=== PATIENT | female | born 1940 | race Caucasian/White ===

== ENCOUNTER 2020-10-11 20:15 | Inpatient (IN) | payer MEDICARE, OTHER ==
[2020-10-11 22:18] LABS: INR 1.13 (0.83-1.09); PROTHROMBIN TIME (PATIENT) 13.8 SEC (9.7-13.0)
[2020-10-11] MEDS ORDERED: LIDOCAINE 5% TOPICAL PATCH TP ONE (22:22)
[2020-10-11] MEDS ORDERED: ACETAMINOPHEN 1000 MG/100 ML VIAL (NON FORMULARY) IVPB ONE (22:22)
[2020-10-11] MEDS ORDERED: ACETAMINOPHEN INJECTION 100 ML IVPB ONE (22:27)
[2020-10-11] MEDS ORDERED: LIDOCAINE 5% TOPICAL PATCH ONE (22:28)
[2020-10-11 22:29] LABS: BASO % 0.4 % (0-2.0); EOS % 1.3 % (0-4.5); HEMATOCRIT 34.9 % (32.4-45.2); HEMOGLOBIN 11.8 GM/dL (10.7-15.3); LYMPH % 17.4 % (8-40); MCH 30.6 pg (25.7-33.7); MCHC 33.7 g/dl (32.0-36.0); MEAN CELL VOLUME 90.7 fl (80-96); MEAN PLT VOLUME 8.7 fl (7.5-11.1); MONO % 12.5 % (3.8-10.2); NEUT % 68.4 % (42.8-82.8); PLATELET COUNT 249 K/MM3 (134-434); RBC 3.84 M/mm3 (3.60-5.2); RDW 14.1 % (11.6-15.6); WHITE BLOOD COUNT 6.2 K/mm3 (4.0-10.0)
[2020-10-11 22:34] LABS: CHLORIDE 107 mmol/L (98-107); SODIUM 141 mmol/L (136-145)
[2020-10-11 22:37] LABS: ALBUMIN 3.2 g/dl (3.4-5.0); CALCIUM 8.3 mg/dL (8.5-10.1); CO2 33 mmol/L (21-32); GLUCOSE,RANDOM 104 mg/dL (74-106); MAGNESIUM 2.1 mg/dL (1.8-2.4)
[2020-10-11 22:40] LABS: CREATININE 0.7 mg/dL (0.55-1.3); SGOT/AST 59 U/L (15-37); SGPT/ALT 26 U/L (13-61)
[2020-10-11 22:42] LABS: BILIRUBIN,TOTAL 0.4 mg/dL (0.2-1); TOT PROT 7.2 g/dl (6.4-8.2)
[2020-10-11 22:43] LABS: ALK PHOS 103 U/L (45-117)
[2020-10-11 22:46] LABS: N-TERMINAL BNP 73.6 pg/ml (5-450)
[2020-10-11 23:20] LABS: ANION GAP 2 MMOL/L (8-16)
[2020-10-12 01:50] LABS: VENOUS BASE EXCESS 1.9 mmol/L (-2-2); VENOUS O2 SATURATION 61.8 % (70-80); VENOUS PCO2 44.5 mmHg (38-52); VENOUS PH 7.402 (7.310-7.410)
[2020-10-12 04:41] LABS: URINE APPEARANCE CLEAR; URINE BILIRUBIN NEGATIVE (NEGATIVE); URINE COLOR YELLOW; URINE GLUCOSE (UA) NEGATIVE (NEGATIVE); URINE KETONE NEGATIVE (NEGATIVE); URINE LEUK ESTERASE NEGATIVE (NEGATIVE); URINE NITRITE NEGATIVE (NEGATIVE); URINE PROTEIN NEGATIVE (NEGATIVE)
[2020-10-12] MEDS ORDERED: ACETAMINOPHEN 325 MG TABLET (FP) PO PRN (04:44)
[2020-10-12 07:48] VITALS: BMI 27.9
[2020-10-12 08:50] LABS: BASO % 0.3 % (0-2.0); EOS % 1.8 % (0-4.5); HEMATOCRIT 35.3 % (32.4-45.2); HEMOGLOBIN 12.3 GM/dL (10.7-15.3); LYMPH % 21.6 % (8-40); MCH 31.4 pg (25.7-33.7); MCHC 34.7 g/dl (32.0-36.0); MEAN CELL VOLUME 90.4 fl (80-96); MEAN PLT VOLUME 8.6 fl (7.5-11.1); MONO % 11.6 % (3.8-10.2); NEUT % 64.7 % (42.8-82.8); PLATELET COUNT 249 K/MM3 (134-434); RBC 3.91 M/mm3 (3.60-5.2); RDW 13.7 % (11.6-15.6); WHITE BLOOD COUNT 4.9 K/mm3 (4.0-10.0)
[2020-10-12 09:05] LABS: ALBUMIN 3.3 g/dl (3.4-5.0); BLOOD UREA NITROGEN 9.1 mg/dL (7-18); CALCIUM 8.3 mg/dL (8.5-10.1)
[2020-10-12 09:09] LABS: CREATININE 0.5 mg/dL (0.55-1.3)
[2020-10-12 09:10] LABS: BILIRUBIN,TOTAL 0.7 mg/dL (0.2-1); TOT PROT 6.7 g/dl (6.4-8.2)
[2020-10-12] MEDS ORDERED: LIDOCAINE PATCH REMOVAL MC SCH (10:00)
[2020-10-12] MEDS: CHOLECALCIFEROL (VIT D3) 1,000 UNIT (25 MCG) TABLET PO SCH (10:23)
[2020-10-12] MEDS: ZINC SULFATE 220 MG CAPSULE (FP) PO SCH (10:23)
[2020-10-12] MEDS: ENOXAPARIN NA (PORCINE) 40 MG/0.4 ML DISP.SYRIN SQ SCH (10:23)
[2020-10-12] MEDS: ASCORBIC ACID 500 MG TABLET (FP) PO SCH ×2 (10:23→22:17)
[2020-10-13] MEDS: ENOXAPARIN NA (PORCINE) 40 MG/0.4 ML DISP.SYRIN SQ SCH (12:19)
[2020-10-13] MEDS: ASCORBIC ACID 500 MG TABLET (FP) PO SCH ×2 (12:19→21:20)
[2020-10-13] MEDS: ZINC SULFATE 220 MG CAPSULE (FP) PO SCH (12:19)
[2020-10-13] MEDS: CHOLECALCIFEROL (VIT D3) 1,000 UNIT (25 MCG) TABLET PO SCH (12:19)
[2020-10-14] MEDS: ENOXAPARIN NA (PORCINE) 40 MG/0.4 ML DISP.SYRIN SQ SCH (09:53)
[2020-10-14] MEDS: ASCORBIC ACID 500 MG TABLET (FP) PO SCH (09:53)
[2020-10-14] MEDS: CHOLECALCIFEROL (VIT D3) 1,000 UNIT (25 MCG) TABLET PO SCH (09:53)
[2020-10-14] MEDS: ZINC SULFATE 220 MG CAPSULE (FP) PO SCH (09:53)
[2020-10-14 16:25] VITALS: BP 135/61; PULSE 75; TEMP 97.9
== END 2020-10-14 18:45 | disposition home or self-care (01) | DRG 179 ==
LOC: JER 20:15 → JERBED 10-12 03:27 → J8W 10-12 04:44
PROVIDERS: ADMIT Internal Medicine; ATTEND Internal Medicine
DX: U07.1 COVID-19 (principal); I10 Essential (primary) hypertension; R26.2 Difficulty in walking, not elsewhere classified; R53.1 Weakness; R60.0 Localized edema
CPT/HCPCS: 36415; 70450-TC; 71045-TC-FY; 72131-TC; 73502-TC-LT-FY; 73502-TC-RT-FY; 73564-TC-LT-FY; 73564-TC-RT-FY; 80053; 81003; 82550; 82553; 82728; 82803; 83615; 83735; 83880; 84132; 84484; 85025; 85610; 85730; 86140; 87086; 93005; 93010; 93970-TC; 97116-GP; 97161-GP; 99285-25; C9803; J0131; U0003; U0005

== ENCOUNTER 2024-12-26 13:09 | Inpatient (IN) | payer OTHER ==
[2024-12-26] MEDS ORDERED: ACETAMINOPHEN INJECTION 100 ML ONE (14:23)
[2024-12-26] MEDS ORDERED: VANCOMYCIN 1,000 MG in DEXTROSE 5%-WATER - 250 ML IVPB ONE (14:31)
[2024-12-26] MEDS: ACETAMINOPHEN 1000 MG/100 ML BAG IVPB ONE (14:51)
[2024-12-26] MEDS: LACTATED RINGERS SOLUTION 1000 ML INFUS.BAG IV ONE (14:51)
[2024-12-26] MEDS ORDERED: PIPERACILLIN/TAZOB 4.5 GM 4.5 GM/100 ML BAG IVPB ONE (14:59)
[2024-12-26 15:06] LABS: BG HCT 42.0 % (32.4-45.2); VENOUS BASE EXCESS 4.1 mmol/L (-2-2); VENOUS O2 SATURATION 38.2 % (70-80); VENOUS PCO2 46.6 mmHg (38-52); VENOUS PH 7.418 (7.310-7.410)
[2024-12-26 15:08] LABS: ABSOLUTE IMMATURE GRANULOCYTES 0.01 x10^3/uL (0.0-0.031); BASOPHILS # 0.01 x10^3/uL (0.01-0.08); EOSINOPHIL % 0.0 % (0.7-5.8); EOSINOPHILS # 0.00 x10^3/uL (0.04-0.36); MCHC 32.9 g/dl (32.2-35.5); MEAN CELL VOLUME 89.6 fl (79.4-94.8); MEAN PLT VOLUME 9.7 fl (9.4-12.3); MONOCYTE # 0.44 x10^3/uL (0.24-0.86); MONOCYTE % 12.4 % (4.7-12.5); RDW 13.0 % (12.5-17.0)
[2024-12-26 15:15] LABS: INR 1.2 (0.83-1.09); PROTHROMBIN TIME (PATIENT) 13.2 SEC (9.7-13.0)
[2024-12-26 15:18] LABS: ACTIVATED PTT 25.7 SECONDS (25.2-36.5)
[2024-12-26 15:27] LABS: CO2 31.0 mmol/L (21-32); GLUCOSE,RANDOM 97.0 mg/dL (74-106)
[2024-12-26] MEDS: PIPERACILLIN/TAZOB 4.5 GM 4.5 GM in DEXTROSE 5%-WATER 100 ML IVPB ONE (15:29)
[2024-12-26 15:30] LABS: CREATININE 1.0 mg/dL (0.55-1.3); SGOT/AST 34.0 U/L (15-37); SGPT/ALT 24.0 U/L (13-61)
[2024-12-26 15:31] LABS: TOT PROT 6.7 g/dl (6.4-8.2)
[2024-12-26 15:32] LABS: ALK PHOS 107.0 U/L (45-117)
[2024-12-26 15:39] LABS: EPI CELLS 10 /uL (0-25.1); HYALINE CASTS 2 /uL (0-3.1); URINE APPEARANCE CLEAR; URINE BACTERIA 13 /uL (0-1359); URINE BILIRUBIN NEGATIVE (NEGATIVE); URINE COLOR YELLOW; URINE GLUCOSE (UA) NEGATIVE (NEGATIVE); URINE KETONE NEGATIVE (NEGATIVE); URINE LEUK ESTERASE NEGATIVE (NEGATIVE); URINE NITRITE NEGATIVE (NEGATIVE); URINE PROTEIN TRACE (NEGATIVE); URINE RBC 80 /uL (0-23.9); URINE UROBILINOGEN 1.0 mg/dL (0.2-1.0); URINE WBC 8 /uL (0-25.8)
[2024-12-26] MEDS: AZITHROMYCIN IVPB 500 MG in DEXTROSE 5%-WATER - 250 ML IVPB ONE (16:28)
[2024-12-26] MEDS ORDERED: VANCOMYCIN 1 GRAM (PRE-DOCKED) 1,000 MG/250 ML BAG IVPB ONE (16:29)
[2024-12-26] MEDS ORDERED: ASPIRIN 81 MG CHEWABLE TABLETS ONE (16:29)
[2024-12-26] MEDS: ASPIRIN 81 MG CHEWABLE TABLETS PO ONE (16:31)
[2024-12-26] MEDS: VANCOMYCIN 1 GRAM (PRE-DOCKED) 1,000 MG/250 ML BAG IVPB ONE (16:36)
[2024-12-26] MEDS: ENOXAPARIN NA (PORCINE) 40 MG/0.4 ML DISP.SYRIN SQ SCH (22:50)
[2024-12-27] MEDS ORDERED: ACETAMINOPHEN 325 MG TABLET (FP) PO PRN (01:15)
[2024-12-27 02:32] LABS: ABSOLUTE IMMATURE GRANULOCYTES 0.01 x10^3/uL (0.0-0.031); BASOPHILS # 0.01 x10^3/uL (0.01-0.08); EOSINOPHIL % 0.0 % (0.7-5.8); EOSINOPHILS # 0.00 x10^3/uL (0.04-0.36); MCHC 33.5 g/dl (32.2-35.5); MEAN CELL VOLUME 88.9 fl (79.4-94.8); MEAN PLT VOLUME 10.2 fl (9.4-12.3); MONOCYTE # 0.28 x10^3/uL (0.24-0.86); MONOCYTE % 7.3 % (4.7-12.5); RDW 13.1 % (12.5-17.0)
[2024-12-27] MEDS: ACETAMINOPHEN 1000 MG/100 ML BAG IVPB ONE (03:35)
[2024-12-27] MEDS: PIPERACILLIN/TAZOB 4.5 GM 4.5 GM in DEXTROSE 5%-WATER 100 ML IVPB SCH ×2 (03:39→12:18)
[2024-12-27] MEDS: KCL 10 MEQ IVPB 10 MEQ/100 ML INFUS.BAG IVPB SCH (06:31)
[2024-12-27 07:41] LABS: MCHC 33.1 g/dl (32.2-35.5); MEAN CELL VOLUME 89.4 fl (79.4-94.8); MEAN PLT VOLUME 10.2 fl (9.4-12.3); RDW 13.1 % (12.5-17.0)
[2024-12-27 09:01] LABS: GLUCOSE,RANDOM 95.0 mg/dL (74-106)
[2024-12-27 09:05] LABS: CO2 29.0 mmol/L (21-32)
[2024-12-27 09:07] LABS: CREATININE 0.7 mg/dL (0.55-1.3)
[2024-12-27] MEDS ORDERED: CEFTRIAXONE 1 GM in DEXTROSE 5%-WATER - 50 ML IVPB SCH (10:00)
[2024-12-27] MEDS ORDERED: AZITHROMYCIN IVPB 500 MG/250 ML BAG IVPB SCH (10:00)
[2024-12-27] MEDS: ASPIRIN 81 MG CHEWABLE TABLETS PO SCH (10:46)
[2024-12-27] MEDS: CEFTRIAXONE 1 GM in DEXTROSE 5%-WATER - 50 ML IVPB SCH (10:47)
[2024-12-27] MEDS: AZITHROMYCIN IVPB 500 MG/250 ML BAG IVPB SCH (11:36)
[2024-12-27] MEDS: HYDROCHLOROTHIAZIDE 25 MG TABLET (FP) PO SCH (14:24)
[2024-12-27] MEDS: dilTIAZem HCL 25 MG/5 ML - 5 ML VIAL IVPUSH ONE (20:55)
[2024-12-28] MEDS ORDERED: METOPROLOL TARTRATE 5 MG/5 ML VIAL ONE (09:28)
[2024-12-28] MEDS: METOPROLOL TARTRATE 5 MG/5 ML VIAL IVPUSH ONE (09:40)
[2024-12-28] MEDS: DOXYCYCLINE INJECTION 100 MG in DEXTROSE 5%-WATER 100 ML IVPB SCH (09:59)
[2024-12-28] MEDS: METOPROLOL TARTRATE 50 MG TABLET (FP) PO SCH ×2 (11:25→11:26)
[2024-12-28 12:05] LABS: CO2 28.0 mmol/L (21-32)
[2024-12-28 12:06] LABS: GLUCOSE,RANDOM 126.0 mg/dL (74-106)
[2024-12-28 12:09] LABS: CREATININE 0.7 mg/dL (0.55-1.3)
[2024-12-29 07:28] LABS: CO2 28.0 mmol/L (21-32); GLUCOSE,RANDOM 87.0 mg/dL (74-106)
[2024-12-29 07:32] LABS: CREATININE 0.7 mg/dL (0.55-1.3)
[2024-12-29] MEDS: POTASSIUM CHLORIDE TABS 20 MEQ TABLET.ER (FP) PO SCH (09:31)
[2024-12-29] MEDS: APIXABAN 5 MG TABLET PO SCH (09:48)
[2024-12-29] MEDS: AMIODARONE HCL 200 MG TABLET PO SCH (09:48)
[2024-12-29 12:47] VITALS: BMI 26.2
[2024-12-30 21:41] VITALS: RESP 20
[2024-12-31 06:51] LABS: MCHC 32.2 g/dl (32.2-35.5); MEAN CELL VOLUME 89.5 fl (79.4-94.8); MEAN PLT VOLUME 9.6 fl (9.4-12.3); RDW 13.1 % (12.5-17.0)
[2024-12-31 07:39] LABS: CO2 28.0 mmol/L (21-32); GLUCOSE,RANDOM 80.0 mg/dL (74-106)
[2024-12-31 07:42] LABS: CREATININE 0.6 mg/dL (0.55-1.3)
[2024-12-31 14:47] VITALS: BP 139/71; PULSE 67; TEMP 97.3
== END 2024-12-31 18:00 | disposition home or self-care (01) | DRG 280 ==
LOC: JER 13:09 → JERBED 17:24 → J4W 22:11
PROVIDERS: ADMIT Internal Medicine; ATTEND Internal Medicine
DX: I21.A1 Myocardial infarction type 2 (principal); G93.41 Metabolic encephalopathy; J18.9 Pneumonia, unspecified organism; J98.11 Atelectasis; I10 Essential (primary) hypertension; R50.9 Fever, unspecified; R00.0 Tachycardia, unspecified; I48.91 Unspecified atrial fibrillation; M17.0 Bilateral primary osteoarthritis of knee; F03.90 Unspecified dementia, unspecified severity, without behavioral disturbance, psychotic disturbance, mood disturbance, and anxiety
CPT/HCPCS: 36415; 71045-TC-FY; 71275-TC; 80048; 80053; 81003; 82308; 82465; 82803; 83605; 83735; 84484; 85025; 85027; 85379; 85610; 85730; 86850; 86900; 86901; 87040; 87086; 87637-QW; 87899; 93005; 93010; 93306-TC; 97116-GP; 97162-GP; 99285-25; Q9967